=== PATIENT | male | born 1955 | race African-American/Black ===

== ENCOUNTER 2025-04-21 06:04 | Day surgery (SDC) | payer OTHER ==
[2025-04-17 14:14] VITALS: BMI 29.8
[2025-04-21] MEDS ORDERED: HEPARIN NA (PORCINE) 5,000 UNITS/ML 1ML VIAL ONE (13:52)
[2025-04-21] MEDS ORDERED: LIDOCAINE HCL 1%, 10 MG/ML (20ML VIAL) ONE (13:55)
[2025-04-21] MEDS ORDERED: POVIDONE-IODINE OINTMENT 10% - 28.4 GM TUBE ONE (13:55)
[2025-04-21] MEDS ORDERED: PAPAVERINE HCL 30 MG/1 ML 10 ML VIAL NR ONE (13:56)
[2025-04-21] MEDS ORDERED: PROPOFOL 20 ML ONE ×2 (15:23→16:00)
[2025-04-21] MEDS ORDERED: MIDAZOLAM HCL 2 MG/2 ML SINGLE DOSE VIAL ONE (15:24)
[2025-04-21] MEDS: LIDOCAINE HCL 1%, 10 MG/ML (50 mL VIAL) NR ONE ×3 (15:43)
[2025-04-21] MEDS: HEPARIN NA (PORCINE) 5,000 UNITS/ML 1ML VIAL SQ ONE ×2 (15:47)
[2025-04-21] MEDS: SODIUM CHLORIDE 1,000 ML IV SCH (17:40)
[2025-04-21 18:50] VITALS: RESP 16
[2025-04-21 19:15] VITALS: BP 150/86; PULSE 72; TEMP 97.7
== END 2025-04-21 20:06 | disposition home or self-care (01) ==
LOC: JASU-SURG 06:04
PROVIDERS: ATTEND Surgery
PROC: 03180ZD Bypass Left Brachial Artery to Upper Arm Vein, Open Approach (ICD-10-PCS; principal; 2025-04-21 15:00)
PROC: 0J2TXYZ Change Other Device in Trunk Subcutaneous Tissue and Fascia, External Approach (ICD-10-PCS; 2025-04-21 15:00)
DX: T82.41XA Breakdown (mechanical) of vascular dialysis catheter, initial encounter (principal); N18.6 End stage renal disease; Z99.2 Dependence on renal dialysis
CPT/HCPCS: 36581; 36821; C1751; 76000-TC-FY; 94760; C1750; J1644